=== PATIENT | male | born 1970 | race Caucasian/White ===

== ENCOUNTER 2017-09-03 10:25 | Day surgery (SDC) | payer SELFPAY ==
[2017-09-03 11:06] VITALS: BP 114/87; PULSE 72; RESP 16; TEMP 98.1; O2SAT 99
--- NOTE | 2017-09-03 11:34 | RADRPT ---
EXAM DATE/TIME: 09/03/2017 11:12 [place] COMPARISON: No previous studies available for comparison. INDICATIONS : Evaluate for ascites. MEDICAL HISTORY : Cirrhosis. Diabetes. Pancreatitis. HTN. SURGICAL HISTORY : Tracheostomy. ENCOUNTER: Initial ACUITY: 3 days PAIN SCORE: 2/10 LOCATION: Four quadrant. AREA EVALUATED: Four quadrant. FINDINGS: Imaging of the abdomen and pelvis was performed to evaluate for ascites for possible paracentesis. V goyo minimal ascites is noted but is inadequate for safe paracentesis. CONCLUSION: Very minimal ascites is noted which is inadequate for safe paracentesis. Clarence Graham MD on September 03, 2017 at 11:31 Board Certified Radiologist. This report was verified electronically.
== END 2017-09-03 12:42 | disposition home or self-care (01) ==
LOC: HRAD 10:25 → HRIP 10:28 → HRAD 12:42
PROVIDERS: ATTEND Emergency Medicine
DX: R18.8 Other ascites (principal); K74.60 Unspecified cirrhosis of liver; E11.9 Type 2 diabetes mellitus without complications; K85.90 Acute pancreatitis without necrosis or infection, unspecified; I10 Essential (primary) hypertension
CPT/HCPCS: 76705